=== PATIENT | male | born 1965 | race Caucasian/White ===

== ENCOUNTER 2018-05-05 10:23 | Inpatient (IN) | payer OTHER ==
[2018-05-05] MEDS ORDERED: LR 1,000 ML IV ONE (11:27)
[2018-05-05] MEDS ORDERED: LIDOCAINE 1% 2 ML INJ ID PRN (11:27)
[2018-05-05] MEDS ORDERED: ceFAZolin 2 GM/DEXTROSE 100 ML IV ONE (12:48)
[2018-05-05] MEDS ORDERED: BUPIVACAINE 0.25% 30 ML SDV ONE (14:26)
[2018-05-05] MEDS ORDERED: MIDAZOLAM 2 MG/2 ML VIAL IVP ONE (14:33)
--- NOTE | 2018-05-05 14:35 | PDANEPAE ---
ANE History of Present Illness prostate carcinoma ANE Past Medical History - Cardiovascular History Hx Hypertension: No Hx Arrhythmias: No Hx Chest Pain: No Hx Coronary Artery / Peripheral Vascular Disease: No Hx CHF / Valvular Disease: No Hx Palpitations: No - Pulmonary History Hx COPD: No Hx Asthma/Reactive Airway Disease: No Hx Recent Upper Respiratory Infection: No Hx Oxygen in Use at Home: No Hx Sleep Apnea: Yes Sleep Apnea Screening Result - Last Documented: Positive - Neurologic History Hx Cerebrovascular Accident: No Hx Seizures: No Hx Dementia: No - Endocrine History Hx Diabetes: No Hypothyroid: No Hyperthyroid: No Obesity: yes, mild - Renal History Hx Renal Disorders: No Renal History Comment: HX KIDNEY STONES - Liver History Hx Hepatic Disorders: No - Neurological & Psychiatric Hx Hx Neurological and Psychiatric Disorders: No Neurological / Psychiatric History Comment: ESSENTIAL TREMOR - Cancer History Hx Cancer: Yes Cancer History Comment: PROSTATE - Congenital Disorder History Hx Congenital Disorders: No - GI History GERD: no Hx Gastrointestinal Disorders: No - Other Health History Other Health History: NEG - Chronic Pain History Chronic Pain: No (LOW BACK PAIN) - Surgical History Prior Surgeries: 1987 L SHOULDER RECONSTRUCTION ANE Review of Systems Review of Systems: - Exercise capacity Exercise capacity: >=4 METS METS (RN): 4 METS ANE Patient History - Allergies Allergies/Adverse Reactions: No Known Allergies Allergy (Verified 05/05/18 11:51) - Home Medications Home Medications: Aspirin [Aspirin 325 mg (*)] 325 mg PO DAILY 04/29/18 [Last Taken 05/02/18] Escitalopram Oxalate [Lexapro] 20 mg PO DAILY 04/29/18 [Last Taken 05/05/18 0800 ] Herbals/Supplements -Info Only 1 ea PO DAILY 04/29/18 [Last Taken 05/02/18] Naproxen Sodium [Aleve 220 MG (*)] 440 mg PO DAILY 04/29/18 [Last Taken 05/02/18 ] Bruce-3 Fatty Acids [Fish Oil 1000 mg (*)] 1,000 mg PO DAILY 04/29/18 [Last Taken 05/02/18] Tamsulosin HCl [Flomax 0.4 MG (*)] 0.8 mg PO DAILY 04/29/18 [Last Taken 0800] clonazePAM [klonoPIN (*)] 1 mg PO DAILY 04/29/18 [Last Taken 05/05/18 08:00] - NPO status NPO Since - Liquids (Date): 05/04/18 NPO Since - Liquids (Time): 00:00 NPO Since - Solids (Date): 05/04/18 NPO Since - Solids (Time): 00:00 - Anes Hx Anes Hx: no prior problems - Smoking Hx Smoking Status: Never smoked - Alcohol Use Alcohol Use: Occasionally - Family Anes Hx Family Anes Hx: neg - N/A Family Hx Anesthesia Complications: NEG ANE Labs/Vital Signs - Vital Signs Blood Pressure: 148/88 Heart Rate: 70 Respiratory Rate: 20 O2 Sat (%): 93 Height: 172.72 cm Weight: 99.79 kg ANE Physical Exam - Airway Neck exam: FROM Mallampati Score: Class 2 Mouth exam: normal dental/mouth exam - Pulmonary Pulmonary: no respiratory distress, no rales or rhonchi, clear to auscultation - Cardiovascular Cardiovascular: regular rate and rhythym, no murmur, rub, or gallop - ASA Status ASA Status: II ANE Anesthesia Plan Anesthesia Plan: general endotracheal anesthesia Total IV Anesthesia: No
[2018-05-05] MEDS ORDERED: PROPOFOL 200 MG/20 ML VIAL ONE (14:52)
[2018-05-05] MEDS ORDERED: fentaNYL 100 MCG/2 ML INJ ONE ×3 (14:52→19:17)
[2018-05-05] MEDS ORDERED: PROPOFOL/EMULSION 500 MG/50 ML BOTTLE IV ONE ×2 (14:52→16:43)
[2018-05-05] MEDS ORDERED: REMIFENTANIL HCL 1 MG VIAL ONE ×2 (14:52→16:49)
[2018-05-05] MEDS ORDERED: ONDANSETRON 4 MG/2 ML VIAL ONE (14:53)
[2018-05-05] MEDS ORDERED: DEXAMETHASONE 4 MG/ML VIAL ONE (14:53)
[2018-05-05] MEDS ORDERED: ROCURONIUM 50 MG/5 ML VIAL ONE ×2 (14:53→15:27)
[2018-05-05] MEDS ORDERED: LIDOCAINE 2% 5 ML SDV ONE (14:56)
[2018-05-05] MEDS ORDERED: PROMETHAZINE HCL 25 MG/ML INJ IVP PRN (15:45)
[2018-05-05] MEDS ORDERED: oxyCODONE IR 5 MG TAB PO PRN (15:45)
[2018-05-05] MEDS ORDERED: HYDROCODONE/APAP 5/325 TAB PO PRN (15:45)
[2018-05-05] MEDS ORDERED: NALOXONE HCL 0.4 MG/ML INJ IVP PRN (15:45)
[2018-05-05] MEDS ORDERED: LR 500 ML IV PRN (15:45)
[2018-05-05] MEDS ORDERED: HYDROmorphONE/DILAUDID 1 MG/ML INJ IVP PRN (15:45)
[2018-05-05] MEDS ORDERED: ACETAMINOPHEN 500 MG TAB PO PRN (15:45)
[2018-05-05] MEDS ORDERED: ONDANSETRON 4 MG/2 ML VIAL IVP PRN ×2 (15:45→18:31)
[2018-05-05] MEDS ORDERED: PHENYLEPHRINE HCL 100 MCG/ML SYR IVP PRN (15:45)
[2018-05-05] MEDS ORDERED: THROMBIN(HUM PLAS)/FIBRINOG/CA 5 ML VIAL TP ONE (16:12)
[2018-05-05] MEDS ORDERED: SURGIFLO MATRIX KIT WITH THROMBIN 8 ML TP ONE (16:12)
[2018-05-05] MEDS ORDERED: REMIFENTANIL HCL 1 MG VIAL IVP ONE (17:00)
[2018-05-05] MEDS ORDERED: GLYCOPYRROLATE 0.2 MG/1 ML VIAL ONE ×2 (18:02)
[2018-05-05] MEDS ORDERED: NEOSTIGMINE METHYLSULFATE 10 MG/10 ML MDV ONE (18:02)
--- NOTE | 2018-05-05 18:27 | POSTOPPROG ---
Post Op Note Date of Operation: 05/05/18 Surgeon: Pancho Sharp Emergency Room Physician Assistant: Manju Anesthesiologist: Agnes Anesthesia: GET(General Endotracheal) Pre-op Diagnosis: prostate cancer Procedure: rrp/plnd Inf/Abcess present in the surg proc area at time of surgery?: No EBL: 50-100 Drains: Maicol Hood (lou) Specimen(s): sent--dictated
[2018-05-05] MEDS ORDERED: ACETAMINOPHEN 325 MG TAB PO PRN (18:31)
[2018-05-05] MEDS ORDERED: ONDANSETRON DISINTEGRATING 4 MG TAB PO PRN (18:31)
[2018-05-05] MEDS ORDERED: LABETALOL HCL 5 MG/ML 20 ML MDV IVP PRN (18:38)
--- NOTE | 2018-05-05 18:39 | POSTANESTH ---
Post Anesthetic Evaluation Cardiovascular Status: Tx Hyper/Hypo-tension Respiratory Status: Normal, Stable Level of Consciousness/Mental Status: Can Participate in Eval Pain Control: Adequate, Prn Tx Ordered Nausea/Vomiting Control: Adequate, Prn Tx Ordered Complications Possibly Related to Anesthesia: None Noted
[2018-05-05] MEDS ORDERED: ACETAMINOPHEN 500 MG TAB ONE (19:14)
[2018-05-05] MEDS: fentaNYL 100 MCG/2 ML INJ IVP PRN ×4 (19:19→19:49)
--- NOTE | 2018-05-05 20:37 | GOP ---
[f rep st] OPERATIVE REPORT DATE OF OPERATION: 05/05/2018 SURGEON: Pancho Sharp MD TITLE ONE TEACHER: Deanna Nunes CFA. ANESTHESIOLOGIST: Zia Murphy DO provided general anesthesia. PREOPERATIVE DIAGNOSIS: Prostate cancer. POSTOPERATIVE DIAGNOSIS: Prostate cancer. PROCEDURE PERFORMED: Robotic-assisted radical prostatectomy with bilateral pelvic lymphadenectomy. FINDINGS: DESCRIPTION OF PROCEDURE: Harry underwent general anesthesia, was prepped and draped in normal sterile fashion after appropriate time-out. Veress needle was placed in the supraumbilical site and the abdomen inflated to 15 mmHg pressure with CO2 and then he had the camera port placed office manager executive assistant port with a 12 mm port and three 8 mm robot working ports and then the robot was docked. He had some sigmoid adhesions that were taken down and then was able to identify the vas deferens that coursed over the iliac vessels and incised the peritoneum over those; followed those down to the base of the prostate. The base of the prostate was fixed and anterior to the bladder between the base of the prostate and the vas deferens and the bladder that seemed to be somewhat hard to fix. I was able to dissect the rectum away from the prostate posteriorly; took some chiselling because of the inflammatory reaction that was noted and then I transected the vasa bilaterally and then both seminal vesicles appeared to have malignancy that were firm and fixed. I dissected those out as lateral as I could and hemostasis with Hem-o-Tangela and bipolar cautery. At that point, I went anterior, dropped the bladder down after taking down the obliterated umbilical arteries and urachus and hemostasis was noted and the endopelvic fascia incised on the right and left sides and I was able to at that point. The puboprostatics were taken down sharply, and the deep dorsal vein was ligated with two #0 Vicryl sutures and then focused our attention to the bladder neck after I defatted the anterior part of the prostate and bladder. At that point, it appeared that the prostate tumor was invading into the bladder neck, so I went proximal to the bladder neck as I could and really tried to make sure that there was no residual tumor left the bladder neck. I opened the anterior part, brought the catheter anteriorly. I incised the posterior bladder neck and then dissected that free, mobilized the bladder, make care not to buttonhole the bladder laterally and used the tissue sealing device to provide hemostasis and dissection laterally on both the right and left sides of the prostate. I dissected off the rectum posteriorly and where it was stuck or adhered through the Denonvilliers plane and made care not to make a colotomy. At that point focused our attention to the apex of the prostate. It was taken down. The tissue was soft, but it had somewhat of a yellow appearance and I could not have gone any more distal on the prostate apex and proximal urethra without going below the pelvic musculature. At that point, I removed the specimen that had been placed in a bag for retrieval at a later point and then attempted to use a Young stitch, but the bladder posterior part was really fixed and felt that I could not bring that down, so then I did the primary anastomosis using a 4-0 Monocryl running suture. It was bridged with a Sparks catheter 20 cc balloon inflated and irrigated and no leak was identified. At that point, used FloSeal and biologic glue around the anastomosis to provide any oozing hemostasis and, then at that point the pelvic lymph node dissection was carried out and he had large lymph nodes on both the right and left sides that were dissected out. Hemostasis and lymphostasis provided with Hem-o-Loks. At that point, we irrigated the bladder again. It irrigated easily. The bladder inflated, deflated. There were no clots and no leakage. Maicol-Hood drain placed in the space of Retzius and brought out through the 8 mm robot port and then I was able to use a fascial closure device to close the office manager executive assistant port. Then deflated the abdomen, brought the specimen on through an extended transverse camera port and then that was closed with an 0 Vicryl suture and felt there was good approximation without tension and then the drain was sewn in place with 3-0 silk. The skin was closed with 4-0 Monocryl and he will be admitted for postoperative care. I will discuss the findings with his and no complications encountered. Specimen appeared to be diffusely firm and through the seminal vesicles and ampulla vas deferens appeared to be quite firm on palpation. Estimated blood loss is 100 mL per Anesthesia and no complications encountered. /[id number]/MODL MTDD
[2018-05-05] MEDS: NS 1,000 ML IV SCH (20:44)
[2018-05-05] MEDS: OXYCODONE/APAP 5/325 TAB PO PRN (21:49)
[2018-05-05] MEDS: HYDROmorphONE/DILAUDID 1 MG/ML INJ IVP PRN (23:11)
[2018-05-06] MEDS ORDERED: DIAZEPAM 5 MG/ML 1 ML SYR IVP PRN (00:02)
[2018-05-06] MEDS: HYDROmorphONE/DILAUDID 1 MG/ML INJ IVP PRN ×7 (01:02→10:07)
[2018-05-06] MEDS: OXYCODONE/APAP 5/325 TAB PO PRN ×2 (01:51→07:05)
[2018-05-06 04:00] LABS: PLATELET COUNT 183 10^3/uL (150-400)
[2018-05-06] MEDS: DIAZEPAM 5 MG/ML 1 ML SYR IVP PRN ×2 (04:39→08:56)
[2018-05-06] MEDS: NS 1,000 ML IV SCH ×3 (04:42→20:31)
--- NOTE | 2018-05-06 09:29 | SOAPPROG ---
SOAP Progress Note Assessment/Plan: Assessment: Prostate cancer Acute POD 1, addressing fluid status, labs ok, abdomen has gas and seems exacerbated due to CPAP, no acute abdominal findings. Plan: Hydrate, cont care, discussed surgery and findings 05/06/18 09:28 05/06/18 09:58 Subjective: rough night due to abdominal cramping, no nausea, no vomiting, no flatus Objective: Vital Signs Temp Pulse Resp BP Pulse Ox 36.9 C 79 17 141/79 H 96 05/06/18 03:49 05/06/18 08:11 05/06/18 08:11 05/06/18 08:11 05/06/18 08:11 Laboratory Results 05/06/18 03:50 05/06/18 03:50 05/05/18 05/06/18 05/07/18 05:59 05:59 05:59 Intake Total 4270 Output Total 1515 410 Balance 2755 -410 Physical Exam - Physical Exam General Appearance: alert EENT: other (pinpoint pupils ? too much narcotic) Neck: supple Respiratory: No respiratory distress Cardiac/Chest: regular rate, rhythm Abdomen: soft, distended (gas noted, no crepitus), No guarding, No rebound Back: No CVA tenderness Skin: warm/dry Extremities: No calf tenderness, No Yossi's sign Neuro/Psych: alert, oriented x 3 ICD10 Worksheet Patient Problems: Problems Problem Status Onset Prostate cancer Acute
[2018-05-06] MEDS ORDERED: NALOXONE HCL 0.4 MG/ML INJ IVP PRN (10:01)
[2018-05-06] MEDS: HYDROmorphONE/DILAUDID 6 MG/30 ML PCA IV PRN (10:27)
[2018-05-06] MEDS: NAPROXEN SODIUM 220 MG TAB PO SCH (10:46)
[2018-05-06] MEDS: ESCITALOPRAM OXALATE 10 MG TAB PO SCH (10:47)
[2018-05-06] MEDS: ASPIRIN 325 MG TAB PO SCH (10:48)
[2018-05-06] MEDS: clonazePAM 1 MG TAB PO SCH (10:48)
--- NOTE | 2018-05-06 10:51 | ASMTCMCOM ---
CM Note CM Note Notes: CM reviewed Pt's chart for D/C planning. Pt is a 52 y/o male with prostate cancer. Yesterday he had surgery which consisted of a robotic-assisted radical prostectomy with bilateral pelvic lymphadanectomy. Prior to his hospitalization Pt lived independently with his , [facility] #[phone]. CM will follow. D/C Plan: TBD Date Signed: 05/06/2018 10:50 AM Electronically Signed By:Gilda Manuel
--- NOTE | 2018-05-06 10:51 | PDMN ---
Medical Necessity Medical necessity: [facility] [place]: [id number] Prostatectomy, Radical. ! day. Medicare inpatient only surgery: Robotic-assisted radical prostatectomy w/ B/L pelvic lymphadenectomy.
[2018-05-06] MEDS: METOCLOPRAMIDE 10 MG/2 ML VIAL IVP PRN (15:57)
[2018-05-06] MEDS ORDERED: NS 1,000 ML IV ONE (16:14)
[2018-05-07] MEDS: HYDROmorphONE/DILAUDID 6 MG/30 ML PCA IV PRN (04:29)
[2018-05-07] MEDS: DIAZEPAM 5 MG/ML 1 ML SYR IVP PRN (04:59)
[2018-05-07] MEDS: NS 1,000 ML IV SCH (07:23)
[2018-05-07] MEDS: ESCITALOPRAM OXALATE 10 MG TAB PO SCH (09:39)
[2018-05-07] MEDS: ASPIRIN 325 MG TAB PO SCH (09:40)
[2018-05-07] MEDS: NAPROXEN SODIUM 220 MG TAB PO SCH (09:40)
[2018-05-07] MEDS: clonazePAM 1 MG TAB PO SCH (09:40)
--- NOTE | 2018-05-07 13:35 | SOAPPROG ---
SOAP Progress Note Assessment/Plan: Assessment: Prostate cancer Acute POD 2, addressing fluid status, labs ok, abdomen has gas and seems exacerbated due to CPAP, no acute abdominal findings. CAT reviewed and no peritoneal ascites, continue present drainage of LUT, path pending Plan: Hydrate, cont care, discussed surgery and findings 05/07/18 13:33 Subjective: improving Objective: Vital Signs Temp Pulse Resp BP Pulse Ox 36.9 C 66 14 116/74 97 05/07/18 11:38 05/07/18 11:38 05/07/18 11:38 05/07/18 11:38 05/07/18 11:38 Laboratory Results 05/07/18 04:32 05/07/18 04:32 05/06/18 05/07/18 05/08/18 05:59 05:59 05:59 Intake Total 4270 3237 Output Total 1515 2690 245 Balance 2755 547 -245 Physical Exam - Physical Exam General Appearance: alert Neck: supple Respiratory: No respiratory distress Cardiac/Chest: regular rate, rhythm Abdomen: soft, other (gas distention) Male Genitalia: normal genitalia Back: No CVA tenderness Skin: warm/dry Extremities: No calf tenderness, No Yossi's sign Neuro/Psych: oriented x 3 ICD10 Worksheet Patient Problems: Problems Problem Status Onset Prostate cancer Acute
[2018-05-07] MEDS ORDERED: MAGNESIUM HYDROXIDE 30 ML UDCUP PO ONE (14:15)
[2018-05-07] MEDS: METOCLOPRAMIDE 10 MG/2 ML VIAL IVP PRN (21:03)
[2018-05-08] MEDS: HYDROmorphONE/DILAUDID 6 MG/30 ML PCA IV PRN (01:45)
[2018-05-08] MEDS: NS 1,000 ML IV SCH (03:02)
[2018-05-08] MEDS: NAPROXEN SODIUM 220 MG TAB PO SCH (08:56)
[2018-05-08] MEDS: clonazePAM 1 MG TAB PO SCH (08:56)
[2018-05-08] MEDS: ESCITALOPRAM OXALATE 10 MG TAB PO SCH (08:56)
[2018-05-08] MEDS: ASPIRIN 325 MG TAB PO SCH (08:56)
[2018-05-08 11:28] VITALS: BP 130/72
--- NOTE | 2018-05-08 12:08 | SOAPPROG ---
SOAP Progress Note Assessment/Plan: Assessment: Prostate cancer Acute POD 3, DC home, continue present drainage of LUT, path pending Plan: DC home, path pending, continue present lou and OSCAR drain 05/08/18 12:06 Subjective: much better Objective: Vital Signs Temp Pulse Resp BP Pulse Ox 37.3 C 67 18 130/72 H 92 05/08/18 11:23 05/08/18 11:23 05/08/18 11:23 05/08/18 11:23 05/08/18 11:23 Laboratory Results 05/08/18 04:28 05/08/18 04:28 05/07/18 05/08/18 05/09/18 05:59 05:59 05:59 Intake Total 3237 3150 Output Total 2690 2745 820 Balance 547 405 -820 Physical Exam - Physical Exam General Appearance: alert Neck: supple Respiratory: No respiratory distress Cardiac/Chest: regular rate, rhythm Abdomen: soft Male Genitalia: normal genitalia, other (cath ok) Back: No CVA tenderness Skin: warm/dry Extremities: No calf tenderness, No Yossi's sign Neuro/Psych: alert, oriented x 3 ICD10 Worksheet Patient Problems: Problems Problem Status Onset Prostate cancer Acute
--- NOTE | 2018-05-08 12:53 | GDS ---
[f rep st] DISCHARGE SUMMARY ADMISSION DIAGNOSIS: Prostate cancer. DISCHARGE DIAGNOSIS: Prostate cancer, pathology pending. HOSPITAL COURSE: The gentleman was an a.m. admission, had the above procedure performed. He is disc harged home with his OSCAR and Sparks catheter and to see me on Wednesday for removal of the OSCAR drain. Pat david is pending. He has done well and no complications. Preop medication list is changed, stoppin g his Flomax and he will be discharged home with some Percocet #[id number]. /[id number]/MODL
--- NOTE | 2018-05-08 17:59 | ASDISCHSUM ---
Discharge Information Plan Status:Home with No Needs Medically Cleared to Leave:05/08/2018 Discharge Date:05/08/2018 12:55 PM CM D/C Disposition:Home, Routine, Self-Care ADT D/C Disposition:Home, Routine, Self-Care Projected Discharge Date:05/08/2018 12:55 PM Transportation at D/C:Family Discharge Delay Reason: Follow-Up Date:05/08/2018 12:55 PM Discharge Slot:2 - 12:01 pm - 18:00 pm Final Diagnosis:Prostate cancer, pathology pending Placement Information Patient Contact Information Contact Name:ZAIN Relationship: Address:[address] [place] [address] Work Phone: [facility]:[place] Alternate Phone: [facility]/Zip Code:[place] [address] Email: Financial Information Financial Class:HMO and PPO Plans Primary Plan Desc:[employer] KIRSTY Primary Plan Number:[id number] Secondary Plan Desc: Secondary Plan Number: Assessment Information LACE LACE Length of stay for Answers: 3 days current admission Acuity / Level of Answers: Yes Care: Did the patient have an inpatient admission? Comorbidities - select Answers: Any tumor (including all that apply lymphoma or leukemia) # of Emergency department Answers: 0 visits in the last 6 months Score: 8 Date Signed: 05/08/2018 05:59 PM Electronically Signed By:Lizette Ashton RN [facility] Progress Note CM Note CM Note Notes: CM reviewed Pt's chart for D/C planning. Pt is a 52 y/o male with prostate cancer. Yesterday he had surgery which consisted of a robotic-assisted radical prostectomy with bilateral pelvic lymphadanectomy. Prior to his hospitalization Pt lived independently with his , [facility] #[phone]. CM will follow. D/C Plan: TBD Date Signed: 05/06/2018 10:50 AM Electronically Signed By:Gilda Manuel Case Management Discharge Plan Note Case Management Discharge Discharge Order Complete? Answers: Yes Patient to Obtain Answers: via Family Medications Transportation Arranged Answers: Family/Friends Transport will Pick (Date 05/08/2018 12:00 AM & Time) BENEDICTO Complete Answers: No Notes: N/A Case Management Transport Answers: No Notes: N/A Form Complete Faxed Final Orders Answers: No Notes: N/A Agency/Facility Transfer Answers: No Notes: N/A Report Printed & Faxed to Receiving Agency Family Notified Answers: Yes Notes: Pt notified Discharge Comments Notes: Reviewed chart regarding discharge plan of care, pt's progress. Pt to discharge home independently with family support and no identified needs. No IM signed, not applicable. Pt to follow up as directed. CM available for any further issues or concerns. Discharge Plan: Home independently with family support Date Signed: 05/08/2018 05:57 PM Electronically Signed By:Lizette Ashton RN Intervention Information
== END 2018-05-08 12:55 | disposition home or self-care (01) | DRG 708 ==
LOC: F3E 11:17 → F1N 14:49
PROVIDERS: ADMIT Specialist; ATTEND Specialist
DX: C61 Malignant neoplasm of prostate (principal); G25.0 Essential tremor; Z79.82 Long term (current) use of aspirin; Z87.442 Personal history of urinary calculi
CPT/HCPCS: J0690; J1100; J1170; J2250; J2405; J2704; J2765; J3010; J3360